=== PATIENT | female | born 1975 | race Caucasian/White ===

== ENCOUNTER 2016-04-08 06:01 | Emergency (ER) | payer MEDICAID ==
[2015-04-14 05:37] VITALS: BMI 34.2
[~2016-04-08 06:01] MED LIST: BENADRYL25 MG PO; BUPRENORPHINE HC8 MG SL; EZFE 200200 MG PO; PRENATAL COMPLE1 TAB PO; STOOL SOFTENER100 M1 PO
[2016-04-08 06:33] LABS: APPEARANCE CLEAR (CLEAR); BILIRUBIN NEGATIVE (NEGATIVE); COLOR YELLOW (YELLOW); GLUCOSE NEGATIVE (NEGATIVE); KETONE NEGATIVE (NEGATIVE); LEUKOCYTE ESTERASE NEGATIVE (NEGATIVE); NITRITE NEGATIVE (NEGATIVE); PROTEIN NEGATIVE (NEGATIVE); UROBILINOGEN NORMAL (NORMAL)
[2016-04-08 06:34] LABS: BACTERIA FEW /hpf (NONE SEEN); EPITHELIAL CELLS 0-5 /hpf (0-5); MUCUS <1+ /lpf (NONE SEEN); WHITE CELLS - URINE 0-5 /hpf (0-5)
== END 2016-04-08 07:39 | disposition home or self-care (01) ==
LOC: D.ER 06:01
PROVIDERS: Emergency Medicine
DX: N20.1 Calculus of ureter (principal)

== ENCOUNTER 2016-05-03 10:32 | Emergency (ER) | payer MEDICAID ==
[2015-04-14 05:37] VITALS: BMI 34.2
[2016-05-03 11:13] LABS: HEMATOCRIT 33.7 % (36.0-48.0); HEMOGLOBIN 11.2 g/dL (12-16); LYMPHOCYTES 25.3 % (15-50); MCH 29.6 pg (26.0-34.0); MCHC 33.2 g/dL (31.0-37.0); MCV 89.2 fL (80.0-100.0); MEAN PLATELET VOLUME 11.5 fL (7.4-10.4); NEUTROPHILS 71.1 % (40-80); RBC 3.78 10x6/uL (4.00-5.40); RDW 13.5 % (11.5-14.5)
[2016-05-03 11:20] LABS: PLATELET COUNT 214 10x3/uL (130-400)
[2016-05-03 11:22] LABS: ALBUMIN 3.9 g/dL (3.4-5.0); ALKALINE PHOSPHATASE 65 U/L (46-116); ALT (SGPT) 26 U/L (10-68); CALC OSMOLALITY 279 mosm/kg (275-300); CALCIUM 9.1 mg/dL (8.5-10.1); CHLORIDE - SERUM 105 mmol/L (98-107); CREATININE - SERUM 0.7 mg/dL (0.6-1.3); GLUCOSE 91 mg/dL (74-106); POTASSIUM - SERUM 4.1 mmol/L (3.5-5.1); PROTEIN - SERUM 7.6 g/dL (6.4-8.2); SODIUM 140 mmol/L (136-145); UREA NITROGEN 16 mg/dL (7-18); eGFR NON AFRICAN AMERICAN > 90 mL/min (90-120)
[2016-05-03 11:53] LABS: UDS - AMPHET NEGATIVE QUAL (NEGATIVE); UDS - BARB NEGATIVE QUAL (NEGATIVE); UDS - BENZO POSITIVE QUAL (NEGATIVE); UDS - COCAINE NEGATIVE QUAL (NEGATIVE); UDS - METH NEGATIVE QUAL (NEGATIVE); UDS - OPIATE NEGATIVE QUAL (NEGATIVE); UDS - PCP NEGATIVE QUAL (NEGATIVE); UDS - THC NEGATIVE QUAL (NEGATIVE)
[2016-05-03 11:59] LABS: COLOR YELLOW (YELLOW)
[2016-05-03 12:00] LABS: APPEARANCE CLEAR (CLEAR); BACTERIA FEW /hpf (NONE SEEN); BILIRUBIN NEGATIVE (NEGATIVE); EPITHELIAL CELLS 0-5 /hpf (0-5); GLUCOSE NEGATIVE (NEGATIVE); KETONE NEGATIVE (NEGATIVE); LEUKOCYTE ESTERASE TRACE (NEGATIVE); MUCUS <1+ /lpf (NONE SEEN); NITRITE NEGATIVE (NEGATIVE); PROTEIN NEGATIVE (NEGATIVE); RED CELLS - URINE 0-5 /hpf (0-5); SPECIFIC GRAVITY 1.015 (1.005-1.020); UROBILINOGEN NORMAL (NORMAL); WHITE CELLS - URINE 0-5 /hpf (0-5)
== END 2016-05-03 13:04 | disposition home or self-care (01) ==
LOC: D.ER 10:32
PROVIDERS: Emergency Medicine
DX: T39.011A Poisoning by aspirin, accidental (unintentional), initial encounter (principal); K08.89 Other specified disorders of teeth and supporting structures; F17.200 Nicotine dependence, unspecified, uncomplicated

== ENCOUNTER 2016-06-24 18:33 | Emergency (ER) | payer MEDICAID ==
[2015-04-14 05:37] VITALS: BMI 34.2
[2016-06-24 20:05] LABS: BASOPHILS 0.2 % (0.0-2.0); EOSINOPHILS 3.1 % (0-7); HEMATOCRIT 35.6 % (36.0-48.0); HEMOGLOBIN 11.3 g/dL (12-16); IMMATURE GRANULOCYTES 0.2 % (0-5); LYMPHOCYTES 31.7 % (15-50); MCH 28.2 pg (26.0-34.0); MCHC 31.7 g/dL (31.0-37.0); MCV 88.8 fL (80.0-100.0); MEAN PLATELET VOLUME 11.3 fL (7.4-10.4); MONOCYTES 9.9 % (2-11); NEUTROPHILS 54.9 % (40-80); PLATELET COUNT 228 10x3/uL (130-400); RBC 4.01 10x6/uL (4.00-5.40); RDW 15.1 % (11.5-14.5); WBC 6.1 10x3/uL (4.8-10.8)
== END 2016-06-24 21:00 | disposition home or self-care (01) ==
LOC: D.ER 18:33
PROVIDERS: Physician Assistant Medical
DX: J06.9 Acute upper respiratory infection, unspecified (principal); F17.200 Nicotine dependence, unspecified, uncomplicated

== ENCOUNTER 2016-07-17 21:01 | Emergency (ER) | payer MEDICAID ==
[2015-04-14 05:37] VITALS: BMI 34.2
[2016-07-17 22:02] LABS: APPEARANCE CLEAR (CLEAR); COLOR YELLOW (YELLOW); SPECIFIC GRAVITY 1.025 (1.005-1.020)
[2016-07-17 22:03] LABS: BILIRUBIN NEGATIVE (NEGATIVE); GLUCOSE NEGATIVE (NEGATIVE); KETONE NEGATIVE (NEGATIVE); LEUKOCYTE ESTERASE NEGATIVE (NEGATIVE); NITRITE NEGATIVE (NEGATIVE); PROTEIN NEGATIVE (NEGATIVE); UROBILINOGEN NORMAL (NORMAL)
== END 2016-07-17 22:35 | disposition left against medical advice (07) ==
LOC: D.ER 21:01
PROVIDERS: Family Medicine
DX: R10.30 Lower abdominal pain, unspecified (principal)